=== PATIENT | male | born 1945 | race Caucasian/White ===

== ENCOUNTER 2017-05-08 12:00 | Outpatient (CLI) | payer MEDICARE ==
[~2017-05-08 12:00] MED LIST: IOPAMIDOL-300 100 ML VIAL ONE
[2017-05-08] MEDS ORDERED: IOPAMIDOL-300 100 ML VIAL IVP ONE ×3 (12:33→12:38)
--- NOTE | 2017-05-08 14:31 | CT Report ---
EXAM: CT CHEST EXAM DATE: 05/08/2017 12:34 PM. CLINICAL HISTORY: Tongue cancer. COMPARISONS: None. TECHNIQUE: Routine helical CT imaging was performed through the chest. IV contrast: 80 mL Isovue 300. Reconstructions: Coronal and sagittal. In accordance with CT protocol optimization, one or more of the following dose reduction techniques w ere utilized for this exam: automated exposure control, adjustment of mA and/or KV based on patient s ize, or use of iterative reconstructive technique. FINDINGS: Lungs/Pleura: 1. There is a spindle-shaped opacity, 2 x 0.8 x 0.9 cm, with adjacent small atelectasis in the underground supervisor ior superior lingula. 2. No nodules, bronchial thickening, consolidation, or edema. Pulmonary vasculature is normal. No per icardial or pleural effusion. No pneumothorax. There is azygos fissure, a normal variation. Mediastinum: No adenopathy or masses. The heart and great vessels are normal. Bones: Unremarkable. Visualized Abdomen: There is diffuse low-density in the liver without lobular contour changes or mass . Status post cholecystectomy is noted, unremarkable. There is posterior periampullary duodenal diver ticulum, 3 cm without acute inflammatory changes. Other: No bony destructive lesion. There is multilevel moderate degenerative disk disease in the thor acic spine to the upper lumbar spine, predominantly in T12-L1. IMPRESSION: 1. Focal small to moderately sized complex pulmonary opacity in the superior posterior lingula, proba ble atelectasis or resolving pneumonia; however, a small neoplasm with adjacent small atelectasis can not be excluded; chest CT follow-up in 3 months is recommended. 2. Otherwise, negative chest CT. 3. Hepatic steatosis. 4. Small to moderately sized duodenal diverticulum in the posterior periampullary space without acute inflammatory changes. [facility] Referring Provider Line: [phone] SITE ID: [id number]
== END 2017-05-08 12:01 | disposition home or self-care (01) ==
LOC: DI 12:00
PROVIDERS: ATTEND Otolaryngology
DX: R91.8 Other nonspecific abnormal finding of lung field (principal); C02.9 Malignant neoplasm of tongue, unspecified; K76.0 Fatty (change of) liver, not elsewhere classified; K57.10 Diverticulosis of small intestine without perforation or abscess without bleeding
CPT/HCPCS: 71260; Q9967

== ENCOUNTER 2018-01-25 10:44 | Day surgery (SDC) | payer MEDICARE ==
[2018-01-25] MEDS ORDERED: LACTATED RINGERS 1,000 ML IV ONE ×2 (10:53)
[2018-01-25] MEDS ORDERED: MIDAZOLAM 2 MG/2 ML VIAL IVP ONE (11:50)
[2018-01-25] MEDS ORDERED: fentaNYL 250 MCG/5 ML VIAL IVP ONE (11:50)
[2018-01-25 12:48] VITALS: BP 118/75
== END 2018-01-25 10:45 | disposition home or self-care (01) ==
LOC: SDS 10:44
PROVIDERS: ATTEND Surgery
PROC: 0DBL8ZZ Excision of Transverse Colon, Via Natural or Artificial Opening Endoscopic (ICD-10-PCS; 2018-01-25)
PROC: 0DBK8ZZ Excision of Ascending Colon, Via Natural or Artificial Opening Endoscopic (ICD-10-PCS; principal; 2018-01-25 12:00)
DX: Z12.11 Encounter for screening for malignant neoplasm of colon (principal); D12.2 Benign neoplasm of ascending colon; D12.3 Benign neoplasm of transverse colon; I10 Essential (primary) hypertension; E78.5 Hyperlipidemia, unspecified; Z85.810 Personal history of malignant neoplasm of tongue; Z87.891 Personal history of nicotine dependence; K64.8 Other hemorrhoids; K57.30 Diverticulosis of large intestine without perforation or abscess without bleeding
CPT/HCPCS: 45380; J3010; J7120

== ENCOUNTER 2018-04-12 12:35 | Outpatient (CLI) | payer MEDICARE ==
[2018-04-12] MEDS ORDERED: IOVERSOL 320 100 ML VIAL IVP ONE ×2 (12:55→14:29)
[2018-04-12 13:13] LABS: CREATININE 0.9 mg/dL (0.6-1.2)
--- NOTE | 2018-04-12 15:09 | CT Report ---
Reason: SQUAMOUS CELL CANCER OF TONGUE Procedure Date: 04/12/2018 Accession Number: [id number] / [id number] Procedure: CT - Chest W/ CPT Code: FULL RESULT: EXAM: CT CHEST EXAM DATE: 04/12/2018 01:56 PM. 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 COMPARISONS: CHEST W/ 05/08/2017 12:25 PM. TECHNIQUE: Routine helical CT imaging was performed through the chest. IV contrast: 80 mL Optiray 320. Reconstructions: Coronal and sagittal. In accordance with CT protocol optimization, one or more of the following dose reduction techniques were utilized for this exam: automated exposure control, adjustment of mA and/or KV based on patient size, or use of iterative reconstructive technique. FINDINGS: Lungs/Pleura: Interval evolution of previously seen opacity in the left lingula, decreased in size and now identified as scarring. No nodules, bronchial thickening, consolidation, or edema. Pulmonary vasculature is normal. No pericardial or pleural effusion. No pneumothorax. Note is made of azygos fissure, normal variant. Mediastinum: Normal. No adenopathy or masses. The heart and great vessels are normal. Bones: Unremarkable. Visualized Abdomen: Stable configuration status post cholecystectomy. Other: Postsurgical changes are seen in the visualized portions of the neck. 1.7 cm hypoenhancing nodule in the thyroid isthmus. IMPRESSION: No evidence of metastatic disease to the thorax. Thyroid nodule. Consider thyroid ultrasound if this has not been done. [facility]
== END 2018-04-12 12:36 | disposition home or self-care (01) ==
LOC: DI 12:35
PROVIDERS: ATTEND Otolaryngology Plastic Surgery within the Head & Neck
DX: C02.9 Malignant neoplasm of tongue, unspecified (principal); E04.1 Nontoxic single thyroid nodule
CPT/HCPCS: 36415; 71260; 82565; Q9967